=== PATIENT | male | born 1940 | race Caucasian/White ===

== ENCOUNTER → 2016-08-13 | Outpatient (CLI) | payer MEDICARE, OTHER | END | disposition home or self-care (01) | LOC: CDC 15:42 | DX: Z01.810 Encounter for preprocedural cardiovascular examination (principal); I45.10 Unspecified right bundle-branch block; I44.4 Left anterior fascicular block | CPT/HCPCS: 93000 ==

== ENCOUNTER 2017-12-14 11:51 | Emergency (ER) | payer OTHER ==
[~2017-12-14] VITALS: Ht 175.3 cm; Wt 81.8 kg
[2017-12-14 12:31] LABS: BASOPHIL (%) 0.4 % (0-1); EOSINOPHIL (%) 3.9 % (0-5); EOSINOPHIL COUNT 0.2 K/uL (0-0.3); HEMATOCRIT 34.3 % (38.0-50.0); IMMATURE GRANULOCYTE (%) 0.2 % (0.0-0.7); LYMPHOCYTE (%) 29.9 % (15-42); LYMPHOCYTE COUNT 1.4 K/uL (1.0-2.8); MCH 33.3 PG (29.0-34.0); MCV 95.3 FL (86-99); MONOCYTE (%) 9.3 % (3-12); MONOCYTE COUNT 0.4 K/uL (0-0.8); NEUTROPHIL (%) 56.3 % (45-76); NEUTROPHIL COUNT 2.6 K/uL (1.8-6.4); PLATELET COUNT 195 K/uL (156-360); RBC DIS.WIDTH-CV 13.1 % (11.8-14.6); WHITE BLOOD COUNT 4.6 K/uL (4.1-10.2)
[2017-12-14 12:38] LABS: CHLORIDE 104 mEq/L (99-109); POTASSIUM 4.4 mEq/L (3.7-5.4); SODIUM 133 mEq/L (136-147)
[2017-12-14 12:39] LABS: GLUCOSE 105 mg/dL (70-99)
[2017-12-14 12:43] LABS: CREATININE 0.8 mg/dL (0.6-1.3); GFR ESTIMATE (CALCULATED) > 59 mL/min/ (58.99-99999); SERUM ETHYL ALCOHOL < 10 mg/dL
[2017-12-14 12:44] LABS: UREA NITROGEN (BUN) 12 mg/dL (9-23)
[2017-12-14 14:41] VITALS: BP 124/84
== END 2017-12-14 14:42 | disposition home or self-care (01) ==
LOC: EME 11:51
PROVIDERS: Emergency Medicine
DX: F41.9 Anxiety disorder, unspecified (principal); F43.25 Adjustment disorder with mixed disturbance of emotions and conduct; Z04.6 Encounter for general psychiatric examination, requested by authority; F32.9 Major depressive disorder, single episode, unspecified; F17.200 Nicotine dependence, unspecified, uncomplicated
CPT/HCPCS: 80048; 81003; 85025; 90837; 99281; 99284; G0480